=== PATIENT | female | born 1950 | race Caucasian/White ===

== ENCOUNTER 2018-12-17 16:03 | Inpatient (IN) | payer OTHER ==
[2018-12-17] MEDS ORDERED: NS 1,000 ML IV ONE (16:07)
[2018-12-17] MEDS ORDERED: ONDANSETRON 4 MG/2 ML VIAL IVP ONE (16:07)
--- NOTE | 2018-12-17 16:21 | EDPHY ---
H & P Time Seen by Provider: 12/17/18 16:07 HPI/ROS: CHIEF COMPLAINT: Upper GI bleed HISTORY OF PRESENT ILLNESS: The patient presents to the ED with an upper GI bleed that began today. She has been having coffee-ground emesis with mild epigastric discomfort. The patient has a history of hepatocellular carcinoma and alcoholism. The patient has had a history of esophageal varices in the past which have been banded by her report. She believes she was last treated endoscopically approximately 6 months ago. The patient does report a subjective fever. She reports weakness and a sensation of presyncope. The patient is brought to the hospital by her sister secondary to her ongoing complaints. The patient does have a history of chronic ascites and has a Adams drain in place. She reportedly drain 3 L of ascitic fluid today. REVIEW OF SYSTEMS: A comprehensive 10 point review of systems is otherwise negative aside from elements mentioned in the history of present illness. Source: Patient Exam Limitations: No limitations - Family History Significant Family History: No pertinent family hx - Social History Alcohol Use: Heavy - Physical Exam Exam: General Appearance: Cachectic female Eyes: Pupils equal and round no pallor or injection ENT, Mouth: Dry mucous membranes, coffee-ground emesis around lips Respiratory: There are no retractions, lungs are clear to auscultation Cardiovascular: Tachycardic Gastrointestinal: Minimal diffuse abdominal tenderness, Adams drain in place Neurological: 5/5 strength all 4 extremities Skin: Warm and dry, no rashes Musculoskeletal: Muscular wasting Extremities: symmetrical, full range of motion Psychiatric: Patient is oriented X 3, there is no agitation Constitutional: Initial Vital Signs Temperature (C) 36.0 C 12/17/18 16:22 Heart Rate 102 H 12/17/18 16:22 Respiratory Rate 16 12/17/18 16:22 Blood Pressure 98/47 L 12/17/18 16:22 O2 Delivery Mode Room Air O2 (L/minute) 97 Allergies/Adverse Reactions: No Known Allergies Allergy (Unverified 04/22/13 09:37) Home Medications: Medication Instructions Recorded Atenolol [Tenormin 25 mg (RX)] 0 mg PO DAILY 04/22/13 Furosemide [Lasix 20 MG (RX)] 0 mg PO 04/22/13 Spironolactone [Aldactone 25 MG 0 mg PO DAILY 04/22/13 (RX)] traZODone 12/17/18 Medical Decision Making ED Course/Re-evaluation: The patient has a history of liver disease and presents to the ED with an upper GI bleed. She has a history of variceal bleeding. She arrives to the ED with a blood pressure of 90/50 and heart rate of 103. The patient had an IV established. She had typed and screened. Blood cultures are obtained. The patient's initial hematocrit is 20. I ordered 2 units of type specific blood. The patient is started on IV ceftriaxone for possible SBP. Consultation was made with Dr. Gonzalez from Gastroenterology who will see the patient in the ICU this evening. Consultation is made with Dr. Zofia Jackson from the hospitalist service. 5:00 p.m.: Patient is receiving 1 L of normal saline. Blood pressure currently 110/60, heart rate 94. I placed a 18 gauge angiocatheter in her external jugular vein. She currently has 3 peripheral IVs. ETA for blood 20 min. ICU admission ordered. 5:45 p.m.: Blood pressure currently 117/61, heart rate continues to be in the high 90s. Blood is currently being transfused. Differential Diagnosis: Differential diagnosis considered includes esophageal varices, hypovolemic shock , spontaneous bacterial peritonitis Critical Care Time: Critical care time exclusive of procedures and exclusive of the PA's time was 60 minutes, performed by myself, Timo Macias MD. The patient presents the ED with an active upper GI bleed resulting in hemodynamic instability. The patient was resuscitated with IV fluids, blood in started on octreotide drip. The patient will be admitted to the intensive care unit will she will be emergently evaluated by Gastroenterology. - Data Points Laboratory Results: Laboratory Results 12/17/18 16:34 12/17/18 16:34 12/17/18 12/17/18 12/17/18 16:41 16:34 16:34 WBC RBC Hgb POC Hgb 6.8 gm/dL L gm/dL (12.6-16.3) Hct POC Hct 20 % L % (38-47) MCV MCH MCHC RDW Plt Count MPV Neut % (Auto) Lymph % (Auto) [place] % (Auto) Eos % (Auto) Baso % (Auto) Nucleat RBC Rel Count Absolute Neuts (auto) Absolute Lymphs (auto) Absolute Monos (auto) Absolute Eos (auto) Absolute Basos (auto) Absolute Nucleated RBC Immature Gran % Immature Gran # Platelet Estimate Polychromasia Hypochromasia Microcytic Cells Smear Review By PT 16.3 SEC H SEC (12.0-15.0) INR 1.37 H (0.83-1.16) APTT 24.1 SEC SEC (23.0-38.0) POC Sodium 130 mEq/L L mEq/L (135-145) Sodium POC Potassium 4.8 mEq/L mEq/L (3.3-5.0) Potassium POC Chloride 96 mEq/L L mEq/L (97-110) Chloride Carbon Dioxide POC Total CO2 20 mEq/L L mEq/L (22-31) Anion Gap POC BUN 67 mg/dL H mg/dL (7-23) BUN Creatinine POC Creatinine 1.2 mg/dL H mg/dL (0.6-1.0) Estimated GFR Glucose POC Glucose 141 mg/dL H mg/dL (70-100) Calcium Total Bilirubin Conjugated Bilirubin Unconjugated Bilirubin AST ALT Alkaline Phosphatase Total Protein Albumin Lipase Patient ABO/Rh O POSITIVE Antibody Screen NEGATIVE Crossmatch IS Only See Detail 12/17/18 12/17/18 16:34 16:34 WBC 13.96 10^3/uL H 10^3/uL (3.80-9.50) RBC 2.29 10^6/uL L 10^6/uL (4.18-5.33) Hgb 6.3 g/dL L g/dL (12.6-16.3) POC Hgb Hct 21.1 % L % (38.0-47.0) POC Hct MCV 92.1 fL fL (81.5-99.8) MCH 27.5 pg L pg (27.9-34.1) MCHC 29.9 g/dL L g/dL (32.4-36.7) RDW 25.5 % H % (11.5-15.2) Plt Count 317 10^3/uL 10^3/uL (150-400) MPV 10.6 fL fL (8.7-11.7) Neut % (Auto) 84.3 % H % (39.3-74.2) Lymph % (Auto) 5.1 % L % (15.0-45.0) [place] % (Auto) 9.5 % % (4.5-13.0) Eos % (Auto) 0.1 % L % (0.6-7.6) Baso % (Auto) 0.1 % L % (0.3-1.7) Nucleat RBC Rel Count 0.0 % % (0.0-0.2) Absolute Neuts (auto) 11.77 10^3/uL H 10^3/uL (1.70-6.50) Absolute Lymphs (auto) 0.71 10^3/uL L 10^3/uL (1.00-3.00) Absolute Monos (auto) 1.33 10^3/uL H 10^3/uL (0.30-0.80) Absolute Eos (auto) 0.01 10^3/uL L 10^3/uL (0.03-0.40) Absolute Basos (auto) 0.02 10^3/uL 10^3/uL (0.02-0.10) Absolute Nucleated RBC 0.00 10^3/uL 10^3/uL (0-0.01) Immature Gran % 0.9 % % (0.0-1.1) Immature Gran # 0.12 10^3/uL H 10^3/uL (0.00-0.10) Platelet Estimate ADEQUATE (ADEQ) Polychromasia 1+ H Hypochromasia 2+ H Microcytic Cells 1+ H Smear Review By Pending PT INR APTT POC Sodium Sodium 128 mEq/L L mEq/L (135-145) POC Potassium Potassium 4.9 mEq/L mEq/L (3.5-5.2) POC Chloride Chloride 97 mEq/L mEq/L (97-110) Carbon Dioxide 19 mEq/l L mEq/l (22-31) POC Total CO2 Anion Gap 12 mEq/L mEq/L (6-14) POC BUN BUN 69 mg/dL H mg/dL (7-23) Creatinine 1.1 mg/dL H mg/dL (0.6-1.0) POC Creatinine Estimated GFR 50 Glucose 136 mg/dL H mg/dL (70-100) POC Glucose Calcium 8.3 mg/dL L mg/dL (8.5-10.4) Total Bilirubin 0.6 mg/dL mg/dL (0.1-1.4) Conjugated Bilirubin 0.2 mg/dL mg/dL (0.0-0.5) Unconjugated Bilirubin 0.4 mg/dL mg/dL (0.0-1.1) AST 123 IU/L H IU/L (14-46) ALT 70 IU/L H IU/L (9-52) Alkaline Phosphatase 163 IU/L H IU/L (38-126) Total Protein 4.6 g/dL L g/dL (6.3-8.2) Albumin 2.4 g/dL L g/dL (3.5-5.0) Lipase 83 IU/L IU/L (23-300) Patient ABO/Rh Antibody Screen Crossmatch IS Only Medications Given: Octreotide Acetate 500 mcg/ (Sodium Chloride) 51 mls @ 5 mls/hr IV EDNOW ONE Stop: 12/18/18 02:41 Last Admin: 12/17/18 16:53 Dose: 51 mls Discontinued Medications Sodium Chloride (Ns) 1,000 mls @ 0 mls/hr IV EDNOW ONE; Wide Open PRN Reason: Protocol Stop: 12/17/18 16:08 Last Admin: 12/17/18 16:38 Dose: 1,000 mls Ceftriaxone Sodium 2 gm/ (Sodium Chloride) 50 mls @ 100 mls/hr IV EDNOW ONE PRN Reason: Protocol Stop: 12/17/18 17:06 Last Admin: 12/17/18 17:16 Dose: 50 mls Octreotide Acetate (Octreotide Acetate) 50 mcg IVP ONCE ONE Stop: 12/17/18 16:23 Last Admin: 12/17/18 16:52 Dose: 50 mcg Ondansetron HCl (Zofran) 4 mg IVP EDNOW ONE Stop: 12/17/18 16:08 Last Admin: 12/17/18 17:15 Dose: Not Given Point of Care Test Results: Chemistry 12/17/18 16:41 POC Sodium 130 mEq/L L mEq/L (135-145) POC Potassium 4.8 mEq/L mEq/L (3.3-5.0) POC Chloride 96 mEq/L L mEq/L (97-110) POC Total CO2 20 mEq/L L mEq/L (22-31) POC BUN 67 mg/dL H mg/dL (7-23) POC Creatinine 1.2 mg/dL H mg/dL (0.6-1.0) POC Glucose 141 mg/dL H mg/dL (70-100) ISTAT H&H 12/17/18 16:41 POC Hgb 6.8 gm/dL L gm/dL (12.6-16.3) POC Hct 20 % L % (38-47) Departure - Departure Disposition: [facility] Inpatient Acute Clinical Impression: Upper GI bleed, Hemorrhagic shock, End stage liver disease, Hepatocellular carcinoma Condition: Critical
[2018-12-17] MEDS ORDERED: OCTREOTIDE ACETATE 50 MCG/ML INJ IVP ONE (16:22)
[2018-12-17] MEDS ORDERED: OCTREOTIDE ACETATE 500 MCG in NS 50 ML IV ONE ×2 (16:30→17:00)
[2018-12-17] MEDS ORDERED: OCTREOTIDE ACETATE 500 MCG in NS 50 ML IV SCH ×2 (16:30→17:45)
[2018-12-17 16:56] LABS: PLATELET COUNT 317 10^3/uL (150-400)
[2018-12-17 17:15] LABS: INR 1.37 (0.83-1.16); PROTIME(PATIENT) 16.3 SEC (12.0-15.0)
[2018-12-17] MEDS ORDERED: PROMETHAZINE HCL 25 MG/ML INJ IVP PRN (17:45)
[2018-12-17] MEDS ORDERED: ONDANSETRON DISINTEGRATING 4 MG TAB PO PRN (17:45)
[2018-12-17] MEDS ORDERED: ONDANSETRON 4 MG/2 ML VIAL IVP PRN (17:45)
[2018-12-17] MEDS ORDERED: NS 1,000 ML IV SCH (17:45)
[2018-12-17] MEDS ORDERED: oxyCODONE IR 5 MG TAB PO PRN (17:45)
[2018-12-17] MEDS ORDERED: ACETAMINOPHEN 325 MG TAB PO PRN (17:45)
[2018-12-17] MEDS ORDERED: HYDROmorphONE/DILAUDID 1 MG/ML INJ IVP PRN (17:45)
--- NOTE | 2018-12-17 18:03 | PDGENHP ---
History and Physical - Chief Complaint vomiting blood, dark stools - History of Present Illness 68 yo F with PMH that includes alcoholic cirrhosis, metastatic hepatocellular carcinoma, diuretic refractory ascites with Amawalk drain in place, known varices and prior variceal bleed presenting with c/o vomiting dark red blood today and having dark stools for at least the last couple of days. Patient has been steadily losing weight, and notes that she has been getting weaker and weaker. She is followed by Dr. Thomas for her HCC and has been off of treatment for some time, but has been in the process of considering initiation of lenvatinib it sounds like. She is accompanied by her sister who states that Kristopher has been having issues with bleeding for longer than just the last couple of days, and believes she has been vomiting blood nearly daily for weeks. Patient typically drains anywhere from 2-3 of ascites from her Amawalk drain, drained 3 today, and shortly after that began to have increasing dizziness. For the last couple of days she states she has had issues with eating and drinking due to nausea. She generally is always cold, but today was actually too warm and had a low grade temp at home of 99.8. She has required banding in the past, appears last was in January, though patient herself does not recall for sure. History Information - Allergies/Home Medication List Allergies/Adverse Reactions: No Known Allergies Allergy (Unverified 04/22/13 09:37) Home Medications: Ascorbic Acid [Vitamin C 500 mg (*)] 1,000 mg PO BID 12/17/18 [Last Taken Unknown] Furosemide [Lasix 40 MG (*)] 40 mg PO DAILY PRN 12/17/18 [Last Taken Unknown] Herbals/Supplements -Info Only 1 ea PO DAILY 12/17/18 [Last Taken 12/17/18] Omeprazole 40 mg PO DAILY 12/17/18 [Last Taken 12/17/18] Potassium Cl [Klor-Con 20 meq (*)] 20 meq PO DAILY PRN 12/17/18 [Last Taken Unknown] Spironolactone [Aldactone 50 MG (RX)] 50 mg PO DAILY PRN 12/17/18 [Last Taken Unknown] traZODone [traZODONE 50MG (*)] 50 mg PO HS 12/17/18 [Last Taken 12/16/18] I have personally reviewed and updated: family history, medical history, social history, surgical history - Past Medical History cancer (metastatic hepatocellular carcinoma), GI bleed, liver disease (cirrhosis --complicated by refractory ascites, varices, coagulopathy) Additional medical history: etoh abuse--reportedly not drinking for years. PVD - Surgical History Additional surgical history: yomaira drain placement, variceal banding, chemoembolization of HCC - Family History Additional family history: mother alive at 93, hx of colon ca and VTE. father with alcoholism - Social History Smoking Status: Never smoked Alcohol Use: Heavy (reportedly in remission) Drug Use: None Additional social history: lives independently, has 2 sisters who are involved in her care--one present at bedside in town from [place] Review of Systems Review of Systems: ROS: 10pt was reviewed & negative except for what was stated in HPI & below Physical Exam Physical Exam: Temp Pulse Resp BP Pulse Ox 36.0 C 102 H 16 117/61 12/17/18 16:22 12/17/18 17:10 12/17/18 16:22 12/17/18 17:19 Constitutional: chronically ill appearing, uncomfortable, cachectic Eyes: PERRL, pale conjunctiva Ears, Nose, Mouth, Throat: poor dentition, dry mucous membranes Cardiovascular: no murmur, rub, or gallop, tachycardia, No edema Respiratory: no respiratory distress, no rales or rhonchi Gastrointestinal: tenderness, ascites, distension, other (yomaira drain in place) Genitourinary: no bladder tenderness Skin: warm, other (pale) Musculoskeletal: generalized weakness, No asymmetric calves Neurologic: AAOx3 Psychiatric: interacting appropriately, not anxious Lab Data & Imaging Review 12/17/18 16:34 12/17/18 16:34 WBC 13.96 10^3/uL (3.80-9.50) H 12/17/18 16:34 RBC 2.29 10^6/uL (4.18-5.33) L 12/17/18 16:34 Hgb 6.3 g/dL (12.6-16.3) L 12/17/18 16:34 POC Hgb 6.8 gm/dL (12.6-16.3) L 12/17/18 16:41 Hct 21.1 % (38.0-47.0) L 12/17/18 16:34 POC Hct 20 % (38-47) L 12/17/18 16:41 MCV 92.1 fL (81.5-99.8) 12/17/18 16:34 MCH 27.5 pg (27.9-34.1) L 12/17/18 16:34 MCHC 29.9 g/dL (32.4-36.7) L 12/17/18 16:34 RDW 25.5 % (11.5-15.2) H 12/17/18 16:34 Plt Count 317 10^3/uL (150-400) 12/17/18 16:34 MPV 10.6 fL (8.7-11.7) 12/17/18 16:34 Neut % (Auto) 84.3 % (39.3-74.2) H 12/17/18 16:34 Lymph % (Auto) 5.1 % (15.0-45.0) L 12/17/18 16:34 [place] % (Auto) 9.5 % (4.5-13.0) 12/17/18 16:34 Eos % (Auto) 0.1 % (0.6-7.6) L 12/17/18 16:34 Baso % (Auto) 0.1 % (0.3-1.7) L 12/17/18 16:34 Nucleat RBC Rel Count 0.0 % (0.0-0.2) 12/17/18 16:34 Absolute Neuts (auto) 11.77 10^3/uL (1.70-6.50) H 12/17/18 16:34 Absolute Lymphs (auto) 0.71 10^3/uL (1.00-3.00) L 12/17/18 16:34 Absolute Monos (auto) 1.33 10^3/uL (0.30-0.80) H 12/17/18 16:34 Absolute Eos (auto) 0.01 10^3/uL (0.03-0.40) L 12/17/18 16:34 Absolute Basos (auto) 0.02 10^3/uL (0.02-0.10) 12/17/18 16:34 Absolute Nucleated RBC 0.00 10^3/uL (0-0.01) 12/17/18 16:34 Immature Gran % 0.9 % (0.0-1.1) 12/17/18 16:34 Immature Gran # 0.12 10^3/uL (0.00-0.10) H 12/17/18 16:34 Platelet Estimate ADEQUATE (ADEQ) 12/17/18 16:34 Polychromasia 1+ H 12/17/18 16:34 Hypochromasia 2+ H 12/17/18 16:34 Microcytic Cells 1+ H 12/17/18 16:34 PT 16.3 SEC (12.0-15.0) H 12/17/18 16:34 INR 1.37 (0.83-1.16) H 12/17/18 16:34 APTT 24.1 SEC (23.0-38.0) 12/17/18 16:34 POC Sodium 130 mEq/L (135-145) L 12/17/18 16:41 Sodium 128 mEq/L (135-145) L 12/17/18 16:34 POC Potassium 4.8 mEq/L (3.3-5.0) 12/17/18 16:41 Potassium 4.9 mEq/L (3.5-5.2) 12/17/18 16:34 POC Chloride 96 mEq/L (97-110) L 12/17/18 16:41 Chloride 97 mEq/L (97-110) 12/17/18 16:34 Carbon Dioxide 19 mEq/l (22-31) L 12/17/18 16:34 POC Total CO2 20 mEq/L (22-31) L 12/17/18 16:41 Anion Gap 12 mEq/L (6-14) 12/17/18 16:34 POC BUN 67 mg/dL (7-23) H 12/17/18 16:41 BUN 69 mg/dL (7-23) H 12/17/18 16:34 Creatinine 1.1 mg/dL (0.6-1.0) H 12/17/18 16:34 POC Creatinine 1.2 mg/dL (0.6-1.0) H 12/17/18 16:41 Estimated GFR 50 12/17/18 16:34 Glucose 136 mg/dL (70-100) H 12/17/18 16:34 POC Glucose 141 mg/dL (70-100) H 12/17/18 16:41 Calcium 8.3 mg/dL (8.5-10.4) L 12/17/18 16:34 Total Bilirubin 0.6 mg/dL (0.1-1.4) 12/17/18 16:34 Conjugated Bilirubin 0.2 mg/dL (0.0-0.5) 12/17/18 16:34 Unconjugated Bilirubin 0.4 mg/dL (0.0-1.1) 12/17/18 16:34 AST 123 IU/L (14-46) H 12/17/18 16:34 ALT 70 IU/L (9-52) H 12/17/18 16:34 Alkaline Phosphatase 163 IU/L (38-126) H 12/17/18 16:34 Total Protein 4.6 g/dL (6.3-8.2) L 12/17/18 16:34 Albumin 2.4 g/dL (3.5-5.0) L 12/17/18 16:34 Lipase 83 IU/L (23-300) 12/17/18 16:34 Patient ABO/Rh O POSITIVE 12/17/18 16:34 Antibody Screen NEGATIVE 12/17/18 16:34 Crossmatch IS Only See Detail 12/17/18 16:34 Visualized and Interpreted EKG results: Yes EKG additional interpertation: sinus tachycardia Assessment & Plan Assessment: End stage liver disease (Acute) Hemorrhagic shock (Acute) Hepatocellular carcinoma (Acute) Upper GI bleed (Acute) 68 yo F with PMH of etoh cirrhosis as well as metastatic HCC with known varices presenting with acute GIB presumably variceal # UGIB, likely variceal: presenting with hematemesis and melena prior to admission, sounds like sxs have been present for at least a couple of days prior to admission but increased today. She is hypotensive and tachycardic with hct of 20 on arrival. Volume resuscitation and transfusion initiated, patient is more HD stable and mentating normally currently. GI consulted and discussed care plan with Dr. Gonzalez who plans likely to perform EGD post resuscitation. Serial h/h overnight, octreotide gtt and ppi IVP, NPO. Continue CTX given concurrent ascites. # acute on chronic anemia: last hct found in computer was on 12/04 and noted to be 30, presenting at 20, 2/2 above, transfusion 2 units ordered, serial h/h # marco: in setting of GI bleed and hypotension and presumably pre renal, HD mediated, IVF as above, trend urine output # hypotension: 2/2 acute hemorrhage, fluid responsive currently # etoh cirrhosis: with associated varices, refractory ascites with Amawalk drain , mild coagulopathy with INR of 1.3. Holding diuretics given hypotension and bleed, ast/alt slightly elevated, patient denies active drinking but unclear if this is accurate # metastatic HCC: followed by [facility], likely appropriate to transition to palliative care at this point however patient has been reluctant to do so # hyponatremia: hypervolemic hyponatremia, trend # malnutrition: cachectic, albumin 2.4, progressive weight loss in setting of above, dietary consult once taking PO # FC--discussed with patient and her sister at length, patient is starting to lean towards DNR but not ready to make that decision in her current state, sister notes family feels strongly patient needs to start looking into hospice, if stabilizes from above would benefit from palliative consult, sister Edilberto is an RN and would be MDPOA # IP, very high risk and unstable requiring ICU care, an additional 35 min critical care time spent in evaluation of labs, bedside evaluation and mgmt of patient and discussion with other MDs and family
--- NOTE | 2018-12-17 19:08 | CPEKG ---
Test Reason : OPEN Blood Pressure : / mmHG Vent. Rate : 103 BPM Atrial Rate : 103 BPM P-R Int : 134 ms QRS Dur : 085 ms QT Int : 351 ms P-R-T Axes : 078 -54 064 degrees QTc Int : 460 ms Sinus tachycardia Inferior infarct, old Confirmed by Timo Macias ([id number]) on 12/17/2018 7:08:01 PM Referred By: Timo Macias Confirmed By:Timo Macias
[2018-12-17] MEDS: PANTOPRAZOLE SODIUM 40 MG VIAL IVP SCH (20:35)
[2018-12-17] MEDS ORDERED: METOCLOPRAMIDE 10 MG/2 ML VIAL IVP ONE (20:48)
--- NOTE | 2018-12-17 21:15 | PDANEPAE ---
ANE History of Present Illness HERE FOR VARICEAL BLEEDING, H/O HCC METASTATIC, REFRACTORY ASCITES ANE Past Medical History - Cardiovascular History Hx Hypertension: No Hx Arrhythmias: No Hx Chest Pain: No Hx Coronary Artery / Peripheral Vascular Disease: No Hx CHF / Valvular Disease: No Hx Palpitations: No - Pulmonary History Hx COPD: Yes Hx Asthma/Reactive Airway Disease: No Hx Recent Upper Respiratory Infection: No Hx Oxygen in Use at Home: No Hx Sleep Apnea: No - Endocrine History Hx Diabetes: No - Renal History Hx Renal Disorders: No - Liver History Hx Hepatic Disorders: Yes Hepatic History Comment: ESLD - Neurological & Psychiatric Hx Hx Neurological and Psychiatric Disorders: No - Cancer History Hx Cancer: Yes Cancer History Comment: metastatic HCC - GI History Hx Gastrointestinal Disorders: Yes Gastrointestinal History Comment: GI bleeds, varices, refractory acsites with yomaira drain ANE Review of Systems Review of systems is: negative Review of Systems: - Exercise capacity Exercise capacity: <4 METS ANE Patient History - Allergies Allergies/Adverse Reactions: No Known Allergies Allergy (Unverified 04/22/13 09:37) - Home Medications Home medications: home medication list seen and reviewed Home Medications: Ascorbic Acid [Vitamin C 500 mg (*)] 1,000 mg PO BID 12/17/18 [Last Taken Unknown] Furosemide [Lasix 40 MG (*)] 40 mg PO DAILY PRN 12/17/18 [Last Taken Unknown] Herbals/Supplements -Info Only 1 ea PO DAILY 12/17/18 [Last Taken 12/17/18] Omeprazole 40 mg PO DAILY 12/17/18 [Last Taken 12/17/18] Potassium Cl [Klor-Con 20 meq (*)] 20 meq PO DAILY PRN 12/17/18 [Last Taken Unknown] Spironolactone [Aldactone 50 MG (RX)] 50 mg PO DAILY PRN 12/17/18 [Last Taken Unknown] traZODone [traZODONE 50MG (*)] 50 mg PO HS 12/17/18 [Last Taken 12/16/18] - NPO status NPO Status: no food or drink >8 hours - Smoking Hx Smoking Status: Current some day smoker - Alcohol Use Alcohol Use: Heavy (reportedly in remission) ANE Labs/Vital Signs - Labs Result Diagrams: 12/17/18 20:15 12/17/18 16:34 - Vital Signs Vital Signs: reviewed preoperatively; see RN documention for details Blood Pressure: 103/64 Heart Rate: 106 Respiratory Rate: 18 O2 Sat (%): 98 Height: 162.56 cm Weight: 40.37 kg ANE Physical Exam - Airway Neck exam: FROM Mallampati Score: Class 1 Mouth exam: dentures - Pulmonary Pulmonary: no respiratory distress - Cardiovascular Cardiovascular: regular rate and rhythym - ASA Status ASA Status: IV, E ANE Anesthesia Plan Anesthesia Plan: general endotracheal anesthesia
[2018-12-17] MEDS ORDERED: PROPOFOL/EMULSION 500 MG/50 ML BOTTLE IV ONE (21:23)
[2018-12-17] MEDS ORDERED: SUGAMMADEX SODIUM 200 MG/2 ML VIAL IVP ONE (22:00)
--- NOTE | 2018-12-17 22:53 | GCON ---
[f rep st] CONSULTATION DATE OF CONSULTATION: 12/17/2018 REQUESTING PHYSICIAN: Dr. Jackson. INDICATION FOR CONSULTATION: Hematemesis, post hemorrhagic anemia, alcoholic cirrhosis, hepatocellular carcinoma. HISTORY OF PRESENT ILLNESS: I have been asked by Dr. Jackson to see the patient in consultation for chief complaint of upper GI bleed. She is a 68-year -old female with a past medical history for alcoholic cirrhosis and metastatic hepatocellular carcinoma initially noted in 2013. She has had refractory ascites with a [place] drain placed a number of weeks ago and has known history of varices status post esophageal banding approximately 6 months ago at [facility]. She is a poor historian, but her sister is present and helps take care of her. She says that she has been having dark stools for a number of days , but had a massive amount of hematemesis today. She has been paler and weaker over the last number of days but significantly deteriorated after significant hematemesis. Because of that, she brought the patient to the emergency room where she was noted to have posthemorrhagic anemia and was admitted with a presumed upper GI bleed. I am now called to help evaluate and treat presumed varicella bleed. PAST MEDICAL HISTORY: Metastatic hepatocellular carcinoma, alcoholic cirrhosis , refractory ascites. PAST SURGICAL HISTORY: Varicocele banding, chemoembolization, and Yasmani drain placement. FAMILY HISTORY: Mother had colon cancer in her mid 60s but is alive and well in her early 90s. No other cancers to her knowledge. SOCIAL HISTORY: She does not smoke. She drank a significant amount of alcohol but says that she has been abstinent for 4 years. MEDICATIONS: At home, she recently stopped the furosemide and spironolactone but she takes trazodone at night and vitamins. ALLERGIES: No known drug allergies. REVIEW OF SYSTEMS: A complete review of systems was performed and is negative other than in the HPI. Pertinent negatives also include no fevers, chills, sweats, chest pain, palpitations. PHYSICAL EXAMINATION: GENERAL: A chronically ill, cachectic female sitting in her bed comfortably. EYES: Anicteric. KEVIN, EOMI. MOUTH: No lesions. NECK : Supple. No JVD. BACK: No spine tenderness. LUNGS: Clear. CARDIAC: S1, S2. Regular rhythm, tachycardic. ABDOMEN: Bowel sounds are normal in pitch and frequency. Abdomen is soft and nontender. There was some abdominal distention consistent with a little bit of ascites. A [place] drain is in place. EXTREMITIES: No cyanosis, clubbing, or edema. NEUROLOGIC: She is alert, oriented x3. She has no asterixis. Cranial nerves intact, nonfocal. SKIN: No rashes. LABORATORY DATA: WBC 13.6, hemoglobin 6.8, hematocrit 21.1, platelet count 217. After 2 units of packed red blood cells her hematocrit is up to 27.5. Pro time is 16.3, INR 1.37, PTT 24.1. Sodium 130, potassium 4.8, chloride 96, bicarb 20, BUN 67, creatinine 1.2, glucose 141, calcium 8.3, total bilirubin 0.6 , AST 123, ALT 70, alkaline phos 163, lipase 83. Historical laboratory data from December 04, 2018: Hemoglobin 9.6. From November 26, hemoglobin 10.8. From November 18, hemoglobin 12.2. From 2018, negative hepatitis A antibody IgM, negative hepatitis B surface antigen, negative hepatitis B core antibody IgM, and negative hepatitis C antibody. An ultrasound dates back to August 26, 2013, and that shows cirrhosis, severe ascites, and a hepatic mass measuring 1.3 x 1.7 x 1.2 cm, suspicious for hepatoma. ASSESSMENT: 1. Hematemesis. 2. Posthemorrhagic anemia. 3. End-stage liver disease. 4. Ascites, status post Yasmani drain. RECOMMENDATIONS: 1. Continue octreotide. 2. Continue antibiotics, ceftriaxone. 3. Urgent EGD for evaluation of presumed variceal bleed. 4. Continue Protonix, although I will likely decrease this pending results of EGD. 5. Recommend palliative hospice care. 6. Further recommendations to follow results above and clinical course. This will be a high-risk procedure in a very ill patient with an active upper GI bleed. Anesthesia will be requested to perform sedation for the safe completion of this exam. Thank you for allowing me to participate in the patient's healthcare. Do not hesitate to call me with any questions. /[id number]/MODL MTDD
[2018-12-18] MEDS: PANTOPRAZOLE SODIUM 40 MG VIAL IVP SCH (00:25)
[2018-12-18] MEDS: traZODone 50 MG TAB PO SCH ×2 (01:03→20:01)
[2018-12-18 05:57] LABS: PLATELET COUNT 195 10^3/uL (150-400)
--- NOTE | 2018-12-18 06:10 | PDMN ---
Medical Necessity Medical necessity: MCG M180 U GIB A-2 days: 68yo with PMHx: alcoholic cirrhosis, met. HCC, diuretic refractory ascites with [place] drain in place, known varices and prior variceal bleed. presents with vomiting dark red blood, dark stools, wt loss, weakness., dizziness poor PO, pt is hypotensive, tachycardic, H/H 01/16 transfusion 2 units, anticipate > 2 MN ongoing med nec care, further monitoring and tx in this high risk pt.
[2018-12-18] MEDS: PANTOPRAZOLE SODIUM 40 MG TAB PO SCH ×2 (08:05→20:01)
--- NOTE | 2018-12-18 08:55 | ASMTLACE ---
SANTY Acuity / Level of Answers: Yes Care: Did the patient have an inpatient admission? Comorbidities - select Answers: Any tumor (including all that apply lymphoma or leukemia) Chronic pulmonary disease Moderate or severe liver or renal disease Peripheral vascular disease # of Emergency department Answers: 1-2 visits in the last 6 months Social determinants Answers: History of substance abuse (ETOH, street drugs, prescription drugs, etc.) Score: 16 Date Signed: 12/18/2018 08:55 AM Electronically Signed By:Yvette Shook
--- NOTE | 2018-12-18 10:27 | GCON ---
[f rep st] CONSULTATION FIELD HAULER CONSULTATION REFERRING PHYSICIAN: Zofia Jackson MD REASON FOR ADMISSION: GI bleed. HISTORY OF PRESENT ILLNESS: The patient is a 68-year-old white female with a very extensive past med ical history, including metastatic hepatocellular carcinoma, alcoholic cirrhosis, refractory ascites with [place] drain, esophageal varices with prior esophageal bleeds. She presents with hematemesis. She has been followed by Dr. Vipul Thomas for her hepatocellular carcinoma, is not currently on treatmen t. She was seen in the emergency room subcu, admitted to the intensive care unit. She is somewhat s omnolent unable to provide much history, all history is gleaned from the medical record. REVIEW OF SYSTEMS: Ten-point review of systems is attempted, but unable to be performed, secondary t o somnolence. ALLERGIES: None to medications. FAMILY HISTORY: Noncontributory. MEDICATIONS: At home, include trazodone, spironolactone, omeprazole, potassium, Lasix. PAST MEDICAL HISTORY: Again, significant for metastatic hepatocellular carcinoma, alcoholic cirrhosi s, GI bleed, refractory ascites, coagulopathy. SOCIAL HISTORY: No history of tobacco use. Previous heavy alcohol use. No IV drug use. PHYSICAL EXAM: VITAL SIGNS: Blood pressure 118/64, pulse 95, respirations 14, temperature 37.3, oxy gen saturation 94% on room air. GENERAL: She is a thin, somewhat malnourished 68-year-old white fem max who is resting comfortably. HEENT: Eyes are PERRLA, EOMI. Throat exam is deferred. NECK: Sup ple. No cervical adenopathy. HEART: Regular rate and rhythm with a 2/6 systolic murmur at the left sternal border, without radiation. LUNGS: Show diminished breath sounds. ABDOMEN: Mildly distend ed. Bowel sounds are diminished. EXTREMITIES: Show no clubbing, cyanosis, but trace lower extremit y edema. LABORATORY DATA: White count is 12.9, hemoglobin 8.7, hematocrit 26, platelet count is 195. Sodium 131, potassium 4.4, chloride 106, CO2 17, BUN 57, creatinine 0.9, glucose is 120. AST is elevated 15 3, ALT 81, alkaline phosphatase 143, protein is 4.5, albumin is 2.2. IMPRESSION: 1. Upper gastrointestinal bleed. Given her prior history of varicocele bleed, this is likely the so urce. 2. Anemia. 3. Alcoholic cirrhosis. 4. Metastatic hepatocellular carcinoma. 5. Severe cachexia and malnutrition. 6. Patient is currently full cor. RECOMMENDATIONS: 1. Agree with GI consult and subsequent endoscopy. 2. Given her multiple medical problems, including metastatic hepatocellular carcinoma, would recomme nd palliative care at the very least, and more likely hospice would be beneficial. 3. Aggressive hydration. 4. Close cardiovascular monitoring. 5. Follow H and H closely and transfusing appropriately. 6. Patient is n.p.o. for now. Thank you very much. /[id number]/MODL
--- NOTE | 2018-12-18 12:15 | ASMTCASEMG ---
Living Arrangements What is your living Answers: With Other Relative(s) arrangement? Who do you live with? Type Of Residence What kind of residence do Answers: House you live in? Discharge Plan Comments Coordination Status Comments Notes: Patient is a 68yo single female who has end stage liver disease and hepatocellular carcinoma who presents with acute GIB. Patient has been admitted for UGIB, acute on chronic anemia,, hypotension, metstatic HCC, hyponatremia, malnutrition. Patient's sister Edilberto, (RN) is her MDPOA. A palliative consult has been ordered. Patient's PCP is Dr. Sandra Hernandez. Patient lives independently but has 2 sisters who are involved in her care. Patient is beginning to lean towards DNR but not ready to make decision in her current condition. The family members feel the patient needs to start looking into hospice. Ashley Pena is coordinating with the family to set up a Palliative consult since Edilberto has to work tomorrow and then Saturday is a holiday. D/C plan [email or web address] will follow. Date Signed: 12/18/2018 12:14 PM Electronically Signed By:Kait Nassar LCSW
--- NOTE | 2018-12-18 13:24 | HOSPPROG ---
Hospitalist Progress Note Assessment/Plan: 68 yo F with PMH of etoh cirrhosis with ascites / ESLD, as well as metastatic HCC, with known varices presenting with acute GIB # UGIB - EGD yest per Dr. Gonzalez, no obvious source per RN, awaiting procedure report for details. Has h/o varices with prior banding. -cont PPI, octreotide off -continue CTX given concurrent ascites # acute on chronic anemia: hgb 8.7 from 6.3 s/p 2 u prbc's -trend h&h -transfuse for hgb <7 or e/o active bleeding # marco: likely pre renal, Cr normalized with IVF's. BUN still elevated c/w UGIB. -dc ivf's, resuming diuretics for ascites as below # hypotension: 2/2 acute hemorrhage, fluid responsive, SBP now 120's, >3L positive # etoh cirrhosis / ESLD: with h/o varices s/p banding, refractory ascites with [place] drain, mild coagulopathy with INR of 1.3. -MELD score 10 -resume diuretics, monitor BP # metastatic HCC: followed by [facility], pt thinks she will be resuming treatment -oncology consult requested to determine if candidate for ongoing treatment -palliative care consulting # hyponatremia: improving -monitor # malnutrition: cachectic, albumin 2.4, progressive weight loss in setting of above -dietary consult # Code status: pt remains full code. She is agreeable to discussing goals of care with palliative care team. Planning for family meeting tomorrow to further address code status and care goals. # Dispo: cont inpt, ICU, high risk Subjective: Pt feels ok, c/o increased abdominal distention and bloating. Denies CP, SOB or peripheral edema. No fevers/chills. No hematemesis today. Poor appetite Objective: Vital Signs Temp Pulse Resp BP Pulse Ox 37.3 C 102 H 15 123/63 H 95 12/18/18 04:00 12/18/18 12:10 12/18/18 12:00 12/18/18 12:10 12/18/18 12:10 Laboratory Results 12/18/18 05:00 12/18/18 05:00 12/17/18 12/18/18 12/19/18 05:59 05:59 05:59 Intake Total 3350 Balance 3350 PT 16.3 SEC (12.0-15.0) H 12/17/18 16:34 INR 1.37 (0.83-1.16) H 12/17/18 16:34 - Physical Exam Constitutional: chronically ill appearing Eyes: PERRL Ears, Nose, Mouth, Throat: moist mucous membranes Cardiovascular: regular rate and rhythym Respiratory: no respiratory distress, clear to auscultation Gastrointestinal: normoactive bowel sounds, soft, non-tender abdomen, distension Skin: warm Musculoskeletal: full muscle strength Neurologic: AAOx3 Psychiatric: interacting appropriately ICD10 Worksheet Patient Problems: Problems Problem Status Onset End stage liver disease Acute Hemorrhagic shock Acute Hepatocellular carcinoma Acute Upper GI bleed Acute
[2018-12-18] MEDS: FUROSEMIDE 40 MG TAB PO SCH (15:30)
[2018-12-18] MEDS: POTASSIUM CL 20 MEQ TAB PO SCH (15:31)
[2018-12-18] MEDS: SPIRONOLACTONE 50 MG TAB PO SCH (15:31)
--- NOTE | 2018-12-18 15:43 | SOAPPROG ---
SOAP Progress Note Assessment/Plan: Assessment:Plan: 1) UGI bleed - no variceal bleed, slow oozing form her portal HTN gastropathy and her gastritis. PPI, off octreotide 2) Anemia - looking at her labs she has been drifitng down over the last month prob form her slow ooze, HB > 7. no more sig blood loss, follow H/h and keep > 7 3) HCC - doubt she is a candidate for more chemo, oncology to see 4) dispo - needs palliative care or hospice imo 5) ascites - yomaira drain - cause more malnutrition but easy to remove fluid, diuretics prob wont be very effective as I suspct she has peritoneal mets discussed with Dr Canales I will sign off for now recall if needed 12/18/18 15:40 Subjective: cc- hematemesis, post hemorrhagic anemia pt feeling better s/p PRBC more bright more alert unrealistic about future Objective: Vital Signs Temp Pulse Resp BP Pulse Ox 37.3 C 100 18 123/63 H 95 12/18/18 04:00 12/18/18 14:00 12/18/18 14:00 12/18/18 12:10 12/18/18 14:00 Laboratory Results 12/18/18 05:00 12/18/18 05:00 12/17/18 12/18/18 12/19/18 05:59 05:59 05:59 Intake Total 3350 Balance 3350 PT 16.3 SEC (12.0-15.0) H 12/17/18 16:34 INR 1.37 (0.83-1.16) H 12/17/18 16:34 A+Ox3 no asterixis CTA S1S2 +BS soft distended nt Laboratory Tests 12/17/18 12/17/18 12/17/18 16:34 16:34 16:34 Hgb 6.3 L POC Hgb Hct 21.1 L POC Hct PT 16.3 H INR 1.37 H APTT 24.1 BUN 69 H Creatinine 1.1 H 12/17/18 12/17/18 12/18/18 16:41 20:15 05:00 Hgb 8.7 L POC Hgb 6.8 L Hct 27.5 L 26.3 L POC Hct 20 L PT INR APTT BUN Creatinine 12/18/18 05:00 Hgb POC Hgb Hct POC Hct PT INR APTT BUN 57 H Creatinine 0.9 ICD10 Worksheet Patient Problems: Problems Problem Status Onset End stage liver disease Acute Hemorrhagic shock Acute Hepatocellular carcinoma Acute Upper GI bleed Acute
--- NOTE | 2018-12-18 19:50 | GCON ---
[f rep st] CONSULTATION ONCOLOGY CONSULTATION REASON FOR CONSULTATION: Patient with hepatocellular carcinoma, admitted with upper GI bleed. HISTORY OF PRESENT ILLNESS: Al Chase (she prefers Eduin) is a 68-year-old female with a h istory of recurrent hepatocellular carcinoma, with a history of cirrhosis, admitted with alcoholic ci rrhosis, admitted with an upper GI bleed. The patient's oncology history dates back to 2015, when tino palmer was diagnosed with hepatocellular carcinoma arising in the background of alcoholic cirrhosis. This was discovered by Dr. Mcgrath, and found on CT scan, and confirmed on MRI. She underwent chemoemb olization in February of 2016, and at that time had 2 right hepatic masses. The chemoembolization was done with Oncozene beads, which were loaded with doxorubicin. She then had a local recurrence, and u nderwent a Y-90 procedure in April of 2017. The patient has been followed by Dr. Thomas, and found to have a significant rise in her tumor marker, and her AFP value in June of 2018. MRI at that t samson showed at least 2 new lesions in the liver measuring up to 2.5 cm, which were worrisome for recur rent hepatocellular carcinoma. The previously identified right hepatic lesions had evidence of treat ment effect. The patient had a chest CT in July, that showed biapical pleural-parenchymal fibrosis with a 5 mm nodule in the right lateral lung base, there was extensive hepatic cirrhosis with known hepatocellula r carcinoma and splenomegaly. There was a 13 mm pericardiophrenic lymph node, but no obvious evidenc e of metastatic disease. The decision was made for the patient to start on lenvatinib, a new oral ty devan kinase inhibitor. This was considered first-line systemic therapy. She started treatment in September and received 3 weeks of it; however, discontinued it as she stated she had significant fatigue and nausea associated with it. She was recently seen in the office with some symptoms of nausea, but otherwise felt to be tolerating the lenvatinib relatively well. She was noted to have a drop in her hemoglobin at that time, with a hemoglobin of 10.8, and was given 1 dose of IV iron. The patient has a long-standing Yasmani drain in place and drains ascites a few times a week. She has known varices and prior variceal bleeding. She presented to the Emergency Room yesterday after vomi ting dark red blood, and having an episode of melena. On admission, her hemoglobin was 6.3, and she was transfused with 2 units of blood. She underwent an EGD today, which did not show any evidence of varicocele bleed, but there was slow oozing from her portal hypertension, gastropathy, and gastritis . Currently, the patient is resting in bed. She is awake and alert. She states she feels so much bett er after getting the blood transfusion. She reports that she is interested in resuming the lenvatini b, as she had only taken it for 3 weeks. PAST MEDICAL HISTORY: 1. Alcoholic cirrhosis. 2. Esophageal varices and ascites. 3. Peripheral artery disease. PAST SURGICAL HISTORY: Unremarkable. She does have a [place] drain in place. SOCIAL HISTORY: She does not smoke cigarettes, and reportedly is currently not drinking. She lives independently, and has 2 sisters who are involved in her care. REVIEW OF SYSTEMS: 10-point review of systems is negative per HPI. PHYSICAL EXAM: GENERAL: She is a chronically ill-appearing, cachectic female lying comfortably in b ed. VITAL SIGNS: Blood pressure 103/65, heart rate 101, respiratory rate 17, O2 saturation 96% on r oom air. HEENT: Pupils are equal. Sclerae anicteric. Dentition is poor. LUNGS: Clear to auscultat ion. HEART: Regular rate. ABDOMEN: Distended with ascites. Has a [place] drain in place with no si gns of infection. LABORATORY DATA: White blood cell count 12.9, hematocrit 28.1, platelets are 195. Sodium 131, total bilirubin 1.5, AST 153, ALT 81, ammonia less than 9, INR 1.4. IMPRESSION: This is a 68-year-old female with history of alcoholic cirrhosis and hepatocellular carc inoma, previously treated with 2 locally directed therapies initially with chemoembolization and foll owed by Y-90 therapy. She has evidence of progressive disease based on MRI done 4 months ago, and pratt s just recently been started on first-line systemic therapy with a new oral tyrosine kinase inhibitor , lenvatinib. She appears to have been stabilized with a recent blood transfusion and initiation of a proton pump inhibitor. Agree with palliative care consult and no cor status would certainly be appropriate in this situation . The patient is interested in resuming lenvatinib as an outpatient. She can follow up in the offic e to discuss further with Dr. Thomas. Generally, the treatment is well-tolerated, and she really has not had enough of the oral therapy to determine whether or not she has had any type of a response. G enerally, this agent is relatively well tolerated even in her debilitated state. She has a followup appointment with Dr. Thomas later next week, at which time consideration of resumin g lenvatinib can be discussed. Will continue to follow along with you. /[id number]/MODL
[2018-12-19] MEDS: LORazepam 2 MG/ML INJ IVP PRN ×2 (01:45→23:15)
[2018-12-19 05:33] LABS: PLATELET COUNT 200 10^3/uL (150-400)
[2018-12-19] MEDS ORDERED: Herbals/Supplements -Info Only PO SCH (09:00)
--- NOTE | 2018-12-19 09:09 | PDINTPN ---
Rehabilitation Inspector Progress Note Assessment/Plan: Assessment/plan: * Metastatic hepatocellular carcinoma-appreciate Oncology input * Cirrhosis * Coagulopathy * GI bleed * Severe cachexia * Anemia * PT/OT-patient ambulating well in the hallways * Disposition-okay for transfer to floor Subjective: Resting comfortably. No current complaints. Wishes to go home. Objective: Vital Signs Temp Pulse Resp BP Pulse Ox 35.8 C L 88 14 107/62 95 12/19/18 08:00 12/19/18 08:00 12/19/18 08:00 12/19/18 08:00 12/19/18 08:00 Laboratory Results 12/19/18 05:18 12/19/18 05:18 12/18/18 12/19/18 12/20/18 05:59 05:59 05:59 Intake Total 3350 1284 Balance 3350 1284 PT 16.3 SEC (12.0-15.0) H 12/17/18 16:34 INR 1.37 (0.83-1.16) H 12/17/18 16:34 - Time Spent With Patient Time Spent With Patient: 35 min of time spent with patient, over 1/2 involved with coordination of care or counseling. Case discussed with hospitalist Physical Exam - Physical Exam General Appearance: alert, no apparent distress EENT: PERRL/EOMI Neck: non-tender, supple Respiratory: prolonged expiration, No accessory muscle use Cardiac/Chest: normal peripheral pulses, regular rate, rhythm Peripheral Pulses: 2+: carotid (R), carotid (L), femoral (R), femoral (L), dorsalis-pedis (R), dorsalis-pedis (L) Abdomen: normal bowel sounds, non-tender, soft Pelvic Exam: deferred Rectal: deferred Skin: normal color, warm/dry Extremities: normal range of motion, non-tender, normal inspection, normal capillary refill Neuro/Psych: alert, normal mood/affect ICD10 Worksheet Patient Problems: Problems Problem Status Onset End stage liver disease Acute Hemorrhagic shock Acute Hepatocellular carcinoma Acute Upper GI bleed Acute
[2018-12-19] MEDS: PANTOPRAZOLE SODIUM 40 MG TAB PO SCH ×2 (09:10→20:26)
[2018-12-19] MEDS ORDERED: FUROSEMIDE 40 MG TAB PO PRN (09:26)
[2018-12-19] MEDS ORDERED: SPIRONOLACTONE 50 MG TAB PO PRN (09:26)
[2018-12-19] MEDS ORDERED: NS 1,000 ML IV SCH (09:30)
--- NOTE | 2018-12-19 09:31 | HOSPPROG ---
Hospitalist Progress Note Assessment/Plan: 68 yo F with PMH of etoh cirrhosis with ascites / ESLD, as well as metastatic HCC, with known varices presenting with acute GIB, suspect slow blood loss. # UGIB - EGD showed portal hypertensive gastropathy with gastritis. Has h/o varices with prior banding, but no bleeding varices on EGD. -cont bid PPI, octreotide off -continue CTX given concurrent ascites # acute on chronic anemia: hgb 8.7 from 6.3 s/p 2 u prbc's -trend h&h -transfuse for hgb <7 or e/o active bleeding # marco: likely pre renal, Cr normalized with IVF's. BUN still elevated c/w UGIB. # hypotension: 2/2 acute hemorrhage, fluid responsive, SBP now 120's, >3L positive # etoh cirrhosis / ESLD: with h/o varices s/p banding, refractory ascites with [place] drain, mild coagulopathy with INR of 1.3. -MELD score 10 -resume diuretics, which she uses prn, relies on yomaira drain to remove ascites # metastatic HCC: followed by [facility], pt plans to resume tx -oncology input appreciated, pt will f/u with Dr. Thomas -palliative care consulting, pt open to outpt palliative # hyponatremia: likely 2/2 cirrhosis / ascites. Na dropped overnight, urine Na <5 -fluid restrict, gentle NS x1 L -recheck in am # malnutrition: cachectic, albumin 2.4, progressive weight loss in setting of above -dietary consult # Code status: pt remains full code. Pt open to outpt palliative, not ready to change cor status. # Dispo: cont inpt, transfer to med/surg. Palliative care meeting today, possibly dc home tomorrow with outpt palliative support. Subjective: Pt feels ok. Denies pain. No more hematemesis. No coffee ground emesis or BRBPR. No fevers. No N/V. Taking fair po. Objective: Vital Signs Temp Pulse Resp BP Pulse Ox 35.8 C L 88 14 107/62 95 12/19/18 08:00 12/19/18 08:00 12/19/18 08:00 12/19/18 08:00 12/19/18 08:00 Laboratory Results 12/19/18 05:18 12/19/18 05:18 12/18/18 12/19/18 12/20/18 05:59 05:59 05:59 Intake Total 3350 1284 Balance 3350 1284 PT 16.3 SEC (12.0-15.0) H 12/17/18 16:34 INR 1.37 (0.83-1.16) H 12/17/18 16:34 - Physical Exam Constitutional: chronically ill appearing Eyes: PERRL Ears, Nose, Mouth, Throat: moist mucous membranes Cardiovascular: regular rate and rhythym Respiratory: no respiratory distress, clear to auscultation Gastrointestinal: normoactive bowel sounds, soft, non-tender abdomen, distension Skin: warm Musculoskeletal: generalized weakness Neurologic: AAOx3 Psychiatric: interacting appropriately ICD10 Worksheet Patient Problems: Problems Problem Status Onset End stage liver disease Acute Hemorrhagic shock Acute Hepatocellular carcinoma Acute Upper GI bleed Acute
[2018-12-19] MEDS: SPIRONOLACTONE 50 MG TAB PO SCH (09:48)
[2018-12-19] MEDS: POTASSIUM CL 20 MEQ TAB PO SCH (09:48)
[2018-12-19] MEDS: FUROSEMIDE 40 MG TAB PO SCH (09:48)
--- NOTE | 2018-12-19 12:00 | ASMTCMCOM ---
CM Note [facility]EROME Note Notes: Patient is electing Palliative services. Palliative Care team is checking with the sister to see if they have a preference of agency. Patient states her bed for home should be arriving today, it has been on order. She would like to go home today if possible. Referral for Palliative will be made as soon as the famiy makes a decision. CM following. Date Signed: 12/19/2018 11:59 AM Electronically Signed By:Kait Nassar LCSW
--- NOTE | 2018-12-19 12:23 | SOAPPROG ---
SOGRACIELA Progress Note Assessment/Plan: A/P: * Hepatocellular carcinoma: s/p local therapy. Recent initation of lenvatinib. * UGIB: portal gastropathy. * Cirrhosis, portal HTN. Palliative care consultation in progress. She can see Dr. Thomas in clinic to discuss +/- reinitiation of lenvatinib. 12/19/18 12:21 Subjective: S: palliative care consultation in progress. O: VS reviewed. Laboratory Tests 12/19/18 12/19/18 05:18 05:18 WBC 9.23 Hgb 8.3 L Plt Count 200 Sodium 127 L Potassium 4.6 Chloride 100 Carbon Dioxide 19 L BUN 43 H Creatinine 0.9 Glucose 124 H Total Bilirubin 0.6 AST 94 H ALT 71 H Alkaline Phosphatase 153 H Albumin 2.3 L Objective: Vital Signs Temp Pulse Resp BP Pulse Ox 36.8 C 99 18 107/62 98 12/19/18 12:00 12/19/18 12:00 12/19/18 12:00 12/19/18 12:00 12/19/18 12:00 Laboratory Results 12/19/18 05:18 12/19/18 05:18 12/18/18 12/19/18 12/20/18 05:59 05:59 05:59 Intake Total 3350 1284 Balance 3350 1284 PT 16.3 SEC (12.0-15.0) H 12/17/18 16:34 INR 1.37 (0.83-1.16) H 12/17/18 16:34 ICD10 Worksheet Patient Problems: Problems Problem Status Onset End stage liver disease Acute Hemorrhagic shock Acute Hepatocellular carcinoma Acute Upper GI bleed Acute
--- NOTE | 2018-12-19 12:23 | ASMTCMCOM ---
CM Note CM Note Notes: Patient and family chose [facility] for Palliative Care. Referral sent with the order. CM following. Date Signed: 12/19/2018 12:22 PM Electronically Signed By:Kait Nassar LCSW
[2018-12-19] MEDS: traZODone 50 MG TAB PO SCH (20:26)
[2018-12-20] MEDS: PANTOPRAZOLE SODIUM 40 MG TAB PO SCH ×2 (08:16→20:28)
[2018-12-20] MEDS ORDERED: NS 1,000 ML IV SCH (12:15)
--- NOTE | 2018-12-20 12:44 | HOSPPROG ---
Hospitalist Progress Note Assessment/Plan: # UGIB d/t portal hypertensive gastropathy/gastritis - cont protonix, rocephin # acute on chronic anemia s/p 2U PRBC # LUX - resolved # etOH cirrhosis - c/p varices s/p banding, yomaira drain, mild coagulopathy # metastatic HCC, followed by Dr Thomas - considering outpatient treatment # hypoNa - Smiley<5; still hypovolemic - oddly worsened with NS since yesterday - recheck ULytes today, cont NS at 100hr; recheck Na at 8p # malnutrition, cachexia Subjective: wants to go home Objective: Vital Signs Temp Pulse Resp BP Pulse Ox 36.7 C 90 14 137/78 H 94 12/20/18 08:00 12/20/18 08:00 12/20/18 08:00 12/20/18 08:00 12/20/18 08:00 Laboratory Results 12/20/18 09:20 12/20/18 09:20 12/19/18 12/20/18 12/21/18 05:59 05:59 05:59 Intake Total 1284 1115 Output Total 500 Balance 1284 615 PT 16.3 SEC (12.0-15.0) H 12/17/18 16:34 INR 1.37 (0.83-1.16) H 12/17/18 16:34 chart reviewed op note reviewed ICD10 Worksheet Patient Problems: Problems Problem Status Onset Upper GI bleed Acute Hemorrhagic shock Acute End stage liver disease Acute Hepatocellular carcinoma Acute
--- NOTE | 2018-12-20 13:43 | ASMTCMCOM ---
CM Note CM Note Notes: CM met with pt. Therapy's recommended Home Care. Pt refuses home care services at this time. CM to follow. Plan: [facility] Date Signed: 12/20/2018 01:42 PM Electronically Signed By:Bev Castaneda
[2018-12-20] MEDS: traZODone 50 MG TAB PO SCH (20:28)
[2018-12-20] MEDS ORDERED: ALBUMIN 25% 50 ML IV ONE (21:32)
[2018-12-20] MEDS: LORazepam 2 MG/ML INJ IVP PRN (22:45)
[2018-12-21] MEDS ORDERED: ALBUMIN 25% 50 ML IV ONE (06:17)
[2018-12-21 09:41] VITALS: BP 107/62
[2018-12-21] MEDS: PANTOPRAZOLE SODIUM 40 MG TAB PO SCH (09:47)
--- NOTE | 2018-12-21 11:19 | SOAPPROG ---
FREDI Progress Note Assessment/Plan: E&M for Hepatocellular CA * Hepatocellular carcinoma: She was showing some potential signs of response to the lenvatinib with a significant drop in her tumor marker from 29,000 down to about 19,000. It come back up to 35,000 because she is been off the drug for a few weeks. She was on 8 mg daily with 12 mg being the maximum dose. She asked if she can start at 1 tablet or 4 mg a day and then go up as tolerated. I told her that would be fine. * Upper GI bleed: This is been a recurrent problem and she is been followed closely by Dr. Mcgrath for varices. Because of the chronic on and off bleeding, I have been giving her intermittent iron infusions. If she goes home today she has a follow-up on and we can give her another dose of iron and check her level that day. * Cirrhosis: She has ascites and esophageal varices. She is followed by Dr. Mcgrath. This in the cancer is probably contributing to her anorexia and malnutrition. * Intermittent nausea: She is not able to take ondansetron or granisetron due to the interaction with the lenvatinib causing increased risk of QTC prolongation. Prochlorperazine makes her too sleepy. If this is an ongoing problem, we may be able to use oral Akynzeo or IV palonosetron to help control her nausea. She would only need each of these approximately once per week. Subjective: She is feeling much better and hoping to go home soon. She denies any active bleeding. She has been using the peritoneal drain at home without difficulty. Objective: Vital Signs Temp Pulse Resp BP Pulse Ox 36.7 C 62 14 107/62 90 L 12/21/18 07:46 12/21/18 09:40 12/21/18 07:46 12/21/18 09:40 12/21/18 07:46 Laboratory Results 12/21/18 04:53 12/21/18 04:53 12/20/18 12/21/18 12/22/18 05:59 05:59 05:59 Intake Total 1115 1300 Output Total 500 3300 Balance 615 -2000 PT 16.3 SEC (12.0-15.0) H 12/17/18 16:34 INR 1.37 (0.83-1.16) H 12/17/18 16:34 Physical Exam - Physical Exam General Appearance: no apparent distress, cachetic Respiratory: lungs clear Cardiac/Chest: regular rate, rhythm Abdomen: non-tender, distended ICD10 Worksheet Patient Problems: Problems Problem Status Onset End stage liver disease Acute Hemorrhagic shock Acute Hepatocellular carcinoma Acute Upper GI bleed Acute
[2018-12-21] MEDS ORDERED: ALBUMIN 25% 100 ML IV ONE (12:28)
--- NOTE | 2018-12-21 12:45 | ASMTDCNOTE ---
Case Management Discharge Discharge Order Complete? Answers: Yes Patient to Obtain Answers: via [facility] Transportation Arranged Answers: Family/Friends Family Notified Answers: Yes Discharge Comments Notes: Patient has been medically [facility] No other needs noted at this time. CM available should needs arise. Plan: Home with palliative care. Date Signed: 12/21/2018 12:44 PM Electronically Signed By:Loyda Chadwick RN
--- NOTE | 2018-12-21 13:02 | GDS ---
[f rep st] DISCHARGE SUMMARY ALL DIAGNOSES: 1. Upper gastrointestinal bleed due to portal hypertensive gastropathy/gastritis. 2. Ileka-wq-[id number] anemia, status post 2 units of packed red blood cells. 3. Acute kidney injury. 4. Alcoholic cirrhosis. 5. Metastatic hepatocellular carcinoma. 6. Hyponatremia. 7. Malnutrition and cachexia. ALL PROCEDURES: Upper gastrointestinal endoscopy, which showed no variceal bleed. It did show likel y portal hypertensive gastropathy and gastritis with slow oozing. HOSPITAL COURSE BY PROBLEM: This is a 68-year-old female who was admitted with hematemesis and melen a. She underwent an upper endoscopy, as above. She has been treated with Protonix as well as Roceph in, given her history of cirrhosis with an upper GI bleed. She required 2 units of packed red blood cells. Hemoglobin has been stable. It is 8.2 on the day of discharge. She will continue on her PPI . She had significant hyponatremia. It did not respond, as I expected, to fluids. She did have a very low urine sodium, and her sodium actually got worse with 2 L of normal saline. It did improve with albumin. Her sodium is still relatively low at 127 on discharge, though she is quite anxious to be d ischarged. I have told her to maintain a free water/fluids restriction. I have also stopped her diu retics, as she now has a [place] drain in place, and she does not have any lower extremity edema. She is following up with Dr. Thomas in 5 days. She will have labs checked at that point. She has metastatic hepatocellular carcinoma from alcoholic cirrhosis. She will be restarted on lenva tinib her Oncology. She has a followup soon. DISPOSITION: She is discharged in concerning, but stable condition. She has significant help at [facility], including her sister as well as her mother BILLING: I spent more than 30 minutes on the day of discharge coordinating care. /[id number]/MODL
== END 2018-12-21 15:51 | disposition home health service (06) | DRG 378 ==
LOC: EDUNIT# → F2N 18:56 → F3N 12-20 01:39
PROVIDERS: ADMIT Internal Medicine; ATTEND Internal Medicine
PROC: 30233N1 Transfusion of Nonautologous Red Blood Cells into Peripheral Vein, Percutaneous Approach (ICD-10-PCS; 2018-12-17)
PROC: 0DB68ZX Excision of Stomach, Via Natural or Artificial Opening Endoscopic, Diagnostic (ICD-10-PCS; principal; 2018-12-17 21:40)
DX: K29.61 Other gastritis with bleeding (principal); N17.9 Acute kidney failure, unspecified; C22.0 Liver cell carcinoma; E87.1 Hypo-osmolality and hyponatremia; E46 Unspecified protein-calorie malnutrition; R64 Cachexia; I85.00 Esophageal varices without bleeding; K70.30 Alcoholic cirrhosis of liver without ascites; K31.89 Other diseases of stomach and duodenum; D64.9 Anemia, unspecified; E86.9 Volume depletion, unspecified; Z80.0 Family history of malignant neoplasm of digestive organs
CPT/HCPCS: 82435-PO; 82565-PO; 82947-PO; 84132-PO; 84295-PO; 84520-PO; 85014-ER; 96365; 96366; 97116-GP; 97161-GP; 97166-GO; 97535-GO; J0696; J2060; J2354; J2704; J2765; P9016; P9021; P9047